=== PATIENT | male | born 1935 | race Caucasian/White ===

== ENCOUNTER 2019-10-13 16:39 | Emergency (ER) | payer MEDICARE ==
[2019-10-13 17:30] LABS: #Basophils 0.1 thou/uL (0.0-0.2); #Eosinphils 0.3 thou/uL (0.0-0.7); #Lymphocytes 4.1 thou/uL (1.20-3.40); #Monocytes 0.5 thou/uL (0.11-0.59); #Neutrophils 3.7 thou/uL (1.40-6.50); %Basophils 0.6 % (0.0-1.0); %Eosinophils 3.5 % (0.0-10.0); %Lymphocytes 46.8 % (21.0-51.0); %Monocytes 5.9 % (0.0-10.0); %Neutrophils 43.2 % (42.0-75.0); Hemoglobin 13.3 g/dL (14.0-18.0); Mean Corpuscular HGB CONC 34.2 g/dL (32.0-36.0); Mean Corpuscular Hemoglobin 32.5 pg (27.0-31.0); Mean Corpuscular Volume 94.9 fL (78.0-98.0); Mean Platelet Volume 7.6 fL (7.4-10.4); Platelet Count 338 thou/uL (130-400); RBC Distribution Width 12.6 % (11.5-14.5); White Blood Cell (WBC) Count 8.7 thou/uL (4.8-10.8)
[2019-10-13 17:46] LABS: ALT (SGPT) 15 U/L (8-55); AST (SGOT) 19 U/L (5-34); Albumin 4.1 g/dL (3.4-4.8); Alkaline Phosphatase 81 U/L (40-110); Anion Gap 15 mmol/L (10-20); BUN (Urea Nitrogen) 13 mg/dL (8.4-25.7); Bilirubin, Total 0.6 mg/dL (0.2-1.2); Calc. Creatinine Clearance 0 mL/min (70-130); Calcium 9.2 mg/dL (7.8-10.44); Carbon Dioxide 26 mmol/L (23-31); Chloride 103 mmol/L (98-107); Estimated GFR-MDRD 71; Globulin 2.5 g/dL (2.4-3.5); Glucose 112 mg/dL (83-110); Lipase 45 U/L (8-78); Potassium 4.7 mmol/L (3.5-5.1); Protein, Total 6.6 g/dL (5.8-8.1); Sodium 139 mmol/L (136-145)
[2019-10-13 18:35] LABS: Bilirubin Negative (Negative); Blood, Urine Negative (Negative); Clarity Clear (Clear); Glucose, Urine (Dipstick) Normal (Negative); Leukocyte Negative Leu/uL (Negative); Nitrite Negative (Negative); Protein, Urine (Dipstick) Negative (Neg-Trace); Urobilinogen Normal mg/dL (Less than 2)
== END 2019-10-13 19:34 | disposition home or self-care (01) ==
LOC: ERS 16:39
DX: R11.2 Nausea with vomiting, unspecified (principal); E11.9 Type 2 diabetes mellitus without complications; E78.00 Pure hypercholesterolemia, unspecified; Z87.891 Personal history of nicotine dependence; Z79.84 Long term (current) use of oral hypoglycemic drugs; I10 Essential (primary) hypertension
CPT/HCPCS: 36415; 80053; 81003; 83690; 84484; 85025; 93005; 96360

== ENCOUNTER 2023-01-20 08:27 | Emergency (ER) | payer MEDICARE ==
[2023-01-20 09:15] LABS: #Eosinphils 0.2 thou/uL (0.0-0.7); #Monocytes 0.8 thou/uL (0.11-0.59); #Neutrophils 10.7 thou/uL (1.40-6.50); %Basophils 0.2 % (0.0-1.0); %Eosinophils 1.9 % (0.0-10.0); %Lymphocytes 4.1 % (21.0-51.0); %Monocytes 6.3 % (0.0-10.0); %Neutrophils 87.2 % (42.0-75.0); Hematocrit 37.2 % (42.0-52.0); Hemoglobin 12.3 g/dL (14.0-18.0); Mean Corpuscular HGB CONC 33.1 g/dL (32.0-36.0); Mean Corpuscular Hemoglobin 32.2 pg (27.0-31.0); Mean Corpuscular Volume 97.4 fl (78.0-98.0); Mean Platelet Volume 11.3 fL (7.4-10.4); Platelet Count 192 10x3/uL (130-400); RBC Distribution Width 13.5 % (11.5-14.5); Red Blood Cell (RBC) Count 3.82 mill/uL (4.70-6.10); White Blood Cell (WBC) Count 12.2 10x3/uL (4.8-10.8)
[2023-01-20 09:51] LABS: ALT (SGPT) 11 U/L (8-55); AST (SGOT) 15 U/L (5-34); Albumin 3.8 g/dL (3.4-4.8); Alkaline Phosphatase 75 U/L (40-110); Anion Gap 10 mmol/L (10-20); BUN (Urea Nitrogen) 16 mg/dL (8.4-25.7); Bilirubin, Total 0.8 mg/dL (0.2-1.2); Calc. Creatinine Clearance 0 mL/min (70-130); Calcium 8.7 mg/dL (7.8-10.44); Carbon Dioxide 26 mmol/L (23-31); Chloride 106 mmol/L (98-107); Estimated GFR 86; Globulin 2.6 g/dL (2.4-3.5); Glucose 132 mg/dL (83-110); Lipase 58 U/L (8-78); Potassium 4.4 mmol/L (3.5-5.1); Protein, Total 6.4 g/dL (5.8-8.1); Sodium 138 mmol/L (136-145)
[2023-01-20 10:34] LABS: Bacteria/HPF 4+ HPF (None Seen); Bilirubin Negative (Negative); Blood, Urine Negative (Negative); CAUTI Indications for Culture Pelvic or flank pain; Clarity Clear (Clear); Glucose, Urine (Dipstick) Normal (Negative); Ketone, Urine 40 mg/dL (Negative); Leukocyte 250 Leu/uL (Negative); Nitrite 2+ (Negative); Protein, Urine (Dipstick) Negative (Neg-Trace); RBC/HPF 0-3 HPF (0-3); Specific Gravity, Urine 1.016 (1.002-1.036); Squamous Epithelial None Seen HPF (0-3); Urobilinogen Normal mg/dL (Less than 2); WBC/HPF 21-50 HPF (0-3)
[2023-01-20 10:37] LABS: Urine Culture Reflex Yes Yes
[2023-01-20] MEDS ORDERED: Iopamidol-370 76% 500 ML MDV (1 ML CHARGE) ONE (15:28)
== END 2023-01-20 14:41 | disposition home or self-care (01) ==
LOC: ERS 08:27
DX: R11.10 Vomiting, unspecified (principal); R19.7 Diarrhea, unspecified; N39.0 Urinary tract infection, site not specified; I10 Essential (primary) hypertension; E11.9 Type 2 diabetes mellitus without complications; E78.00 Pure hypercholesterolemia, unspecified; Z87.891 Personal history of nicotine dependence; Z79.84 Long term (current) use of oral hypoglycemic drugs; Z79.899 Other long term (current) drug therapy
CPT/HCPCS: 36415; 74177; 80053; 81001; 83690; 85025; 87077; 87086; 87186; Q9967

== ENCOUNTER 2023-03-03 09:59 | Observation (INO) | payer MEDICARE ==
[2023-03-03] MEDS ORDERED: Heparin 5,000 UNITS/ML VIAL ONE (11:14)
[2023-03-03] MEDS ORDERED: fentaNYL 50 mcg/mL 1 mL Vial ONE (11:40)
[2023-03-03] MEDS ORDERED: EPINEPHrine 1 MG/ML AMP ONE (11:47)
[2023-03-03] MEDS ORDERED: Lidocaine 1% (PF) 30 ML VIAL ONE (11:47)
[2023-03-03] MEDS ORDERED: CEFAZOLIN 2 GM VIAL ONE (12:10)
[2023-03-03] MEDS ORDERED: Sodium Chloride 0.9% 100 ML ONE (12:11)
[2023-03-03] MEDS ORDERED: Ondansetron PF 4 MG/2 ML Vial ONE (12:21)
[2023-03-03] MEDS ORDERED: PHENYLEPHRINE-NS 100 MCG/ML 10 ML SYRINGE ONE (12:21)
[2023-03-03] MEDS ORDERED: PROPOFOL 200 MG/20 ML VIAL ONE (12:21)
[2023-03-03] MEDS ORDERED: Dexamethasone 20 MG/5 ML VIAL ONE (12:21)
[2023-03-03] MEDS ORDERED: Lidocaine 1% PF 5 ML VIAL ONE (12:21)
[2023-03-03] MEDS ORDERED: Ondansetron ODT 8 MG TAB PO PRN (18:21)
[2023-03-03] MEDS ORDERED: Finasteride 5 MG TAB PO SCH (21:00)
[2023-03-03] MEDS ORDERED: Gabapentin 300 MG CAP PO SCH (21:00)
[2023-03-03] MEDS ORDERED: Atorvastatin Calcium 10 MG TAB PO SCH (21:00)
[2023-03-03] MEDS: traMADol HCl 50 MG TAB PO PRN (22:57)
[2023-03-03 23:04] VITALS: BMI 19.3
[2023-03-03] MEDS ORDERED: Cephalexin 250 MG CAP PO SCH (23:59)
[2023-03-04] MEDS: CEFAZOLIN 2 GM in Sodium Chloride 0.9% 100 ML IVPB SCH ×3 (00:30→14:44)
[2023-03-04] MEDS ORDERED: metFORMIN 500 MG TAB PO SCH (08:00)
[2023-03-04] MEDS ORDERED: Silodosin 8 MG CAP PO SCH (08:00)
[2023-03-04] MEDS ORDERED: Losartan 25 MG TAB PO SCH (09:00)
[2023-03-04] MEDS: traMADol HCl 50 MG TAB PO PRN (10:56)
[2023-03-04 13:03] VITALS: BP 148/56; TEMP 98
[2023-03-04] MEDS ORDERED: Cephalexin 250 MG CAP PO SCH (18:00)
[2023-03-05] MEDS ORDERED: Scopolamine 1 mg/72 hour Patch TOP SCH (21:00)
== END 2023-03-04 17:30 | disposition home or self-care (01) ==
LOC: SDC 09:59 → SURG B 18:13
PROVIDERS: ADMIT Plastic Surgery; ATTEND Plastic Surgery
PROC: 0HX1XZZ Transfer Face Skin, External Approach (ICD-10-PCS; principal; 2023-03-03)
PROC: 0HX1XZZ Transfer Face Skin, External Approach (ICD-10-PCS; 2023-03-03)
DX: C44.319 Basal cell carcinoma of skin of other parts of face (principal); Z88.0 Allergy status to penicillin
CPT/HCPCS: 14301; 14302 ×6; 82962; 93005; 97139; J3010; 36416; 88305; 88331; 88332; 93010; J0171; J1100; J1644; J2001; J2405; J2704; J3490

== ENCOUNTER 2023-03-05 03:53 | Emergency (ER) | payer MEDICARE | END 2023-03-05 08:59 | disposition home or self-care (01) | LOC: ERS 03:53 | DX: T81.89XA Other complications of procedures, not elsewhere classified, initial encounter (principal); E11.9 Type 2 diabetes mellitus without complications; I10 Essential (primary) hypertension; E78.00 Pure hypercholesterolemia, unspecified; Z87.891 Personal history of nicotine dependence; Z79.84 Long term (current) use of oral hypoglycemic drugs; Z79.899 Other long term (current) drug therapy | CPT/HCPCS: 99282 ==

== ENCOUNTER 2025-02-25 12:10 | Outpatient (CLI) | payer MEDICARE | END 2025-02-25 12:11 | disposition home or self-care (01) | LOC: BICRAD 12:10 | PROVIDERS: ATTEND Family Medicine | DX: J20.9 Acute bronchitis, unspecified (principal); R91.8 Other nonspecific abnormal finding of lung field | CPT/HCPCS: 36415; 71046; 80053; 80061; 82306; 83036; 84153; 84443; 85025; 87086 ==

== ENCOUNTER 2025-03-03 12:57 | Emergency (ER) | payer MEDICARE ==
[2025-03-03 14:45] LABS: Bacteria/HPF 4+ HPF (None Seen); Glucose, Urine (Dipstick) Normal (Negative); Leukocyte 500 Leu/uL (Negative); Protein, Urine (Dipstick) 30 mg/dL (Neg-Trace); Specific Gravity, Urine 1.018 (1.002-1.036); WBC/HPF Greater than 50 HPF (0-3)
[2025-03-03 14:47] LABS: Urine Culture Reflex Yes Yes
[2025-03-03 14:53] LABS: Cocaine Metabolite Screen Negative (Negative); THC/Cannabinoid Screen Negative (Negative); Tricyclic Screen Negative (Negative)
[2025-03-03] MEDS ORDERED: cefTRIAXone (ROCEPHIN) 1 GM VIAL ONE (15:36)
[2025-03-03 16:09] LABS: #Basophils 0.04 10x3/uL (0.0-0.2); #Eosinophils 0.15 10x3/uL (0.0-0.7); #Monocytes 1.62 10x3/uL (0.11-0.59); #Neutrophils 10.51 10x3/uL (1.40-6.50); %Basophils 0.3 % (0.0-1.0); %Eosinophils 1.0 % (0.0-10.0); %Lymphocytes 17.7 % (21.0-51.0); %Monocytes 10.8 % (0.0-10.0); %Neutrophils 69.7 % (42.0-75.0); Hematocrit 37.6 % (42.0-52.0); Hemoglobin 12.1 g/dL (14.0-18.0); Mean Corpuscular Hemoglobin 30.9 pg (27.0-31.0); Mean Corpuscular Volume 95.9 fL (78.0-98.0); Platelet Count 333 10x3/uL (130-400); Red Blood Cell (RBC) Count 3.92 mill/uL (4.70-6.10); White Blood Cell (WBC) Count 15.06 10x3/uL (4.8-10.8)
[2025-03-03 16:26] LABS: Lipase 35 U/L (8-78)
[2025-03-03 16:28] LABS: Acetaminophen Less than 10 mcg/mL (Less than 10); Salicylate Less than 8.0 mg/dL (Less than 8.0)
[2025-03-03 16:30] LABS: ALT (SGPT) 9 U/L (Less than 45); AST (SGOT) 18 U/L (11-34); Albumin 3.0 g/dL (3.1-4.5); Alkaline Phosphatase 96 U/L (40-110); Anion Gap 12 mmol/L (10-20); BUN (Urea Nitrogen) 19 mg/dL (8.4-25.7); Bilirubin, Total 0.5 mg/dL (0.3-1.2); CK (CPK) 16 U/L (30-200); Calc. Creatinine Clearance 0 mL/min (70-130); Calcium 8.9 mg/dL (7.8-10.44); Carbon Dioxide 28 mmol/L (23-31); Chloride 100 mmol/L (98-107); Globulin 4.0 g/dL (2.4-3.5); Glucose 116 mg/dL (83-110); Potassium 3.8 mmol/L (3.5-5.1); Sodium 136 mmol/L (136-145)
== END 2025-03-03 17:00 | disposition home or self-care (01) ==
LOC: ERS 12:57
DX: N39.0 Urinary tract infection, site not specified (principal); R41.0 Disorientation, unspecified; R91.1 Solitary pulmonary nodule; I10 Essential (primary) hypertension; E11.9 Type 2 diabetes mellitus without complications; E78.00 Pure hypercholesterolemia, unspecified; C61 Malignant neoplasm of prostate; Z55.6 Problems related to health literacy; Z87.891 Personal history of nicotine dependence
CPT/HCPCS: 70450; 71250; 80306; 80307 ×2; 81001; 82140; 82550; 83690; 84484; 87077; 87086; 87186; 93005; 94760; 96374; 99285; J0696; 80053; 84443; 85025

== ENCOUNTER 2025-03-21 19:14 | Emergency (ER) | payer MEDICARE | END 2025-03-21 22:21 | disposition home or self-care (01) | LOC: ERS 19:14 | DX: S09.90XA Unspecified injury of head, initial encounter (principal); E11.9 Type 2 diabetes mellitus without complications; Z87.891 Personal history of nicotine dependence; W18.30XA Fall on same level, unspecified, initial encounter | CPT/HCPCS: 70450; 72125 ==

== ENCOUNTER 2025-03-22 00:59 | Inpatient (IN) | payer MEDICARE ==
[2025-03-22 03:39] LABS: #Basophils 0.04 10x3/uL (0.0-0.2); #Eosinophils 0.46 10x3/uL (0.0-0.7); #Monocytes 1.03 10x3/uL (0.11-0.59); #Neutrophils 8.00 10x3/uL (1.40-6.50); %Basophils 0.3 % (0.0-1.0); %Eosinophils 3.7 % (0.0-10.0); %Lymphocytes 23.2 % (21.0-51.0); %Monocytes 8.3 % (0.0-10.0); %Neutrophils 64.0 % (42.0-75.0); Hematocrit 36.1 % (42.0-52.0); Hemoglobin 11.7 g/dL (14.0-18.0); Mean Corpuscular Hemoglobin 30.3 pg (27.0-31.0); Mean Corpuscular Volume 93.5 fL (78.0-98.0); Platelet Count 280 10x3/uL (130-400); Red Blood Cell (RBC) Count 3.86 mill/uL (4.70-6.10); White Blood Cell (WBC) Count 12.48 10x3/uL (4.8-10.8)
[2025-03-22 03:58] LABS: ALT (SGPT) 46 U/L (Less than 45); AST (SGOT) 39 U/L (11-34); Albumin 3.5 g/dL (3.1-4.5); Alkaline Phosphatase 90 U/L (40-110); Anion Gap 15 mmol/L (10-20); BUN (Urea Nitrogen) 15 mg/dL (8.4-25.7); Bilirubin, Total 0.5 mg/dL (0.3-1.2); Calc. Creatinine Clearance 0 mL/min (70-130); Calcium 8.9 mg/dL (7.8-10.44); Carbon Dioxide 27 mmol/L (23-31); Chloride 103 mmol/L (98-107); Globulin 3.5 g/dL (2.4-3.5); Glucose 99 mg/dL (83-110); Potassium 4.6 mmol/L (3.5-5.1); Sodium 140 mmol/L (136-145)
[2025-03-22 05:39] LABS: Bacteria/HPF 1+ HPF (None Seen); CAUTI Indications for Culture Alt mental st,lethar; Glucose, Urine (Dipstick) Normal (Negative); Leukocyte 25 Leu/uL (Negative); Protein, Urine (Dipstick) 10 mg/dL (Neg-Trace); RBC/HPF 21-50 HPF (0-3); Specific Gravity, Urine 1.018 (1.002-1.036)
[2025-03-22 05:42] LABS: Urine Culture Reflex Yes Yes
[2025-03-22] MEDS ORDERED: LevoFLOXacin 750 mg/D5W 150 ml Premix Bag ONE (06:18)
[2025-03-22] MEDS ORDERED: Acetaminophen 325 MG TAB PO PRN (06:49)
[2025-03-22] MEDS ORDERED: Melatonin 3 MG TAB PO PRN (06:49)
[2025-03-22] MEDS ORDERED: Calcium Carbonate 500 MG ChewTAB PO PRN (06:49)
[2025-03-22 09:04] VITALS: BMI 20.9
[2025-03-22] MEDS: Enoxaparin 40 MG (0.4 mL) SYRINGE SC SCH (11:08)
[2025-03-22] MEDS ORDERED: Glucagon 1 MG/ML KIT IM PRN (13:42)
[2025-03-22] MEDS: Dextrose 50% Abboject 50 ML SYRINGE SLOW IVP PRN (14:08)
[2025-03-22 14:34] LABS: Actual Bicarbonate (HCO3v) 29.5 mEq/L (22-28); Base Excess 2.2 mEq/L (-2.0 to +3.0); Calcium, Ionized (venous) 1.13 mmol/L (1.16-1.32); Chloride (VBG) 99 mmol/L (98-106); Hematocrit-VBG 37 % (42.0-52.0); Hemoglobin (Hb) 12.6 g/dL (12.6-17.4); Potassium (VBG) 4.10 mmol/L (3.70-5.30); Sodium 136 mmol/L (133-146)
[2025-03-23] MEDS: cefTRIAXone\\ROCEPHIN 1 GM in Sodium Chloride 0.9% 100 ML IVPB SCH (04:55)
[2025-03-23 06:41] LABS: #Basophils Less than 0.03 10x3/uL (0.0-0.2); #Eosinophils 0.50 10x3/uL (0.0-0.7); #Monocytes 0.67 10x3/uL (0.11-0.59); #Neutrophils 4.55 10x3/uL (1.40-6.50); %Basophils 0.2 % (0.0-1.0); %Eosinophils 6.2 % (0.0-10.0); %Lymphocytes 28.6 % (21.0-51.0); %Monocytes 8.3 % (0.0-10.0); %Neutrophils 56.3 % (42.0-75.0); Hematocrit 36.6 % (42.0-52.0); Hemoglobin 11.6 g/dL (14.0-18.0); Mean Corpuscular Hemoglobin 30.2 pg (27.0-31.0); Mean Corpuscular Volume 95.3 fL (78.0-98.0); Platelet Count 273 10x3/uL (130-400); Red Blood Cell (RBC) Count 3.84 mill/uL (4.70-6.10); White Blood Cell (WBC) Count 8.08 10x3/uL (4.8-10.8)
[2025-03-23 06:57] LABS: ALT (SGPT) 29 U/L (Less than 45); AST (SGOT) 26 U/L (11-34); Albumin 2.9 g/dL (3.1-4.5); Alkaline Phosphatase 77 U/L (40-110); Anion Gap 11 mmol/L (10-20); BUN (Urea Nitrogen) 8 mg/dL (8.4-25.7); Bilirubin, Total 0.4 mg/dL (0.3-1.2); Calc. Creatinine Clearance 71 mL/min (70-130); Calcium 8.5 mg/dL (7.8-10.44); Carbon Dioxide 28 mmol/L (23-31); Chloride 105 mmol/L (98-107); Globulin 3.2 g/dL (2.4-3.5); Glucose 93 mg/dL (83-110); Potassium 3.9 mmol/L (3.5-5.1); Sodium 140 mmol/L (136-145)
[2025-03-23] MEDS: metFORMIN 500 MG TAB PO SCH (09:38)
[2025-03-24] MEDS: Ergocalciferol 1.25 MG(50,000 UNITS) CAP PO SCH (08:23)
[2025-03-24 15:13] VITALS: BMI 20.9
[2025-03-26 08:15] VITALS: BP 137/69; TEMP 97.7
== END 2025-03-26 09:45 | disposition hospice, home (50) | DRG 689 ==
LOC: ERS 00:59 → T4-B 06:52
PROVIDERS: ADMIT Internal Medicine; ATTEND Internal Medicine
DX: N39.0 Urinary tract infection, site not specified (principal); G93.41 Metabolic encephalopathy; E11.9 Type 2 diabetes mellitus without complications; I10 Essential (primary) hypertension; E78.00 Pure hypercholesterolemia, unspecified; F03.90 Unspecified dementia, unspecified severity, without behavioral disturbance, psychotic disturbance, mood disturbance, and anxiety; R29.6 Repeated falls; R63.4 Abnormal weight loss; R13.10 Dysphagia, unspecified; Z85.46 Personal history of malignant neoplasm of prostate; Z88.2 Allergy status to sulfonamides; Z88.0 Allergy status to penicillin; Z88.5 Allergy status to narcotic agent; Z88.8 Allergy status to other drugs, medicaments and biological substances; Z91.018 Allergy to other foods; Z90.49 Acquired absence of other specified parts of digestive tract; Z98.890 Other specified postprocedural states; Z87.891 Personal history of nicotine dependence; Z68.20 Body mass index [BMI] 20.0-20.9, adult; Z51.5 Encounter for palliative care; Z79.899 Other long term (current) drug therapy; Z79.84 Long term (current) use of oral hypoglycemic drugs
CPT/HCPCS: 36415; 36416; 51701; 70450; 71045; 72125; 80053; 81001; 82805; 83605; 84484; 85025; 87040; 87086; 93005; J0696; J1650; J1956; J7999